=== PATIENT | female | born 1945 | race Caucasian/White ===

== ENCOUNTER → 2017-11-09 | Outpatient (CLI) | payer OTHER | LOC: BRMIMAGING 10:49 | PROVIDERS: ATTEND Internal Medicine | DX: M77.31 Calcaneal spur, right foot (principal); M77.32 Calcaneal spur, left foot; M67.971 Unspecified disorder of synovium and tendon, right ankle and foot; M11.261 Other chondrocalcinosis, right knee; M11.262 Other chondrocalcinosis, left knee | CPT/HCPCS: 73562-PO; 73610-PO; 73630-PO ==